=== PATIENT | female | born 1995 | race Caucasian/White ===

== ENCOUNTER 2020-11-19 16:02 | Emergency (ER) | payer MEDICAID ==
[2020-11-19] MEDS ORDERED: Sodium Chloride 0.9% 10 ML Syringe FLUSH PRN (16:42)
[2020-11-19] MEDS ORDERED: Ondansetron 4 MG/2 ML SDV IVPUSH ONE (16:42)
[2020-11-19] MEDS ORDERED: HYDROmorphone 0.5 MG/0.5 ML Syringe IVPUSH ONE (16:42)
[2020-11-19] MEDS ORDERED: Sodium Chloride 0.9% 1,000 ML IV SCH (16:45)
--- NOTE | 2020-11-19 16:46 | EDM.PDOC ---
ED HPI GENERAL MEDICAL PROBLEM - General Chief Complaint: Abdominal Pain Stated Complaint: BLOOD IN STOOL/CRAMPING Time Seen by Provider: 11/19/20 16:25 Source of Information: Reports: Patient, RN Notes Reviewed - History of Present Illness INITIAL COMMENTS - FREE TEXT/NARRATIVE: 25 yr old female has had some dark "tarry diarrhea with some blood as well today". she does have hx of Crohn's diagnosed about 5 yrs ago. No fever or chills. she has had nausea but no vomiting. She is also having a lot of upper abd cramping. No fever or chills. No chest pain or difficulty breathing. Right Lower Abdomen Pain Score (Numeric/FACES): 8 - Related Data Allergies Allergy/AdvReac Type Severity Reaction Status Date / Time cephalexin [From Keflex] Allergy Severe Cannot Verified 11/19/20 16:22 Remember Sulfa (Sulfonamide Allergy Severe Cannot Verified 11/19/20 16:22 Antibiotics) Remember Home Meds: Home Meds ARIPiprazole [Abilify] 30 mg PO DAILY 11/19/20 [History] Adalimumab [Humira(Cf) Pen] 80 mg INJECT ASDIRECTED 11/19/20 [History] Control 1 tab PO DAILY 11/19/20 [History] Past Medical History Gastrointestinal History: Reports: Other (See Below) Other Gastrointestinal History: crohns Psychiatric History: Reports: Anxiety, Bipolar Social & Family History - Tobacco Use Tobacco Use Status *Q: Current Every Day Tobacco User Years of Tobacco use: 10 Packs/Tins Daily: 1 - Caffeine Use Caffeine Use: Reports: None - Recreational Drug Use Recreational Drug Use: No ED ROS GENERAL - Review of Systems Review Of Systems: See Below Constitutional: Denies: Fever, Chills HEENT: Reports: No Symptoms Respiratory: Denies: Shortness of Breath Cardiovascular: Denies: Chest Pain GI/Abdominal: Reports: Abdominal Pain, Diarrhea, Hematochezia, Melena, Nausea. Denies: Vomiting Musculoskeletal: Denies: Back Pain Skin: Reports: No Symptoms Neurological: Reports: No Symptoms ED EXAM, GI/ABD - Physical Exam Exam: See Below General Appearance: Alert, No Apparent Distress Throat/Mouth: Normal Inspection Head: Atraumatic Neck: Supple Respiratory/Chest: No Respiratory Distress, Lungs Clear, Normal Breath Sounds Cardiovascular: Regular Rate, Rhythm GI/Abdominal Exam: Tender (upper mid exam and mid abd) Extremities: Normal Inspection Neurological: Alert, No Motor/Sensory Deficits Skin Exam: Warm, Dry, Normal Color, No Rash Course - Vital Signs Last Recorded V/S: Last Vital Signs Temp 97.5 F 11/19/20 18:23 Pulse 80 11/19/20 18:23 Resp 16 11/19/20 18:23 BP 119/83 11/19/20 18:23 Pulse Ox 100 11/19/20 18:23 - Orders/Labs/Meds Orders: Active Orders 24 hr Category Date Time Status Peripheral IV Care [RC] . DIRECTED Care 11/19/20 16:43 Active Sodium Chloride 0.9% [Normal Saline] 1,000 ml Med 11/19/20 16:45 Active IV ONETIME Sodium Chloride 0.9% [Saline Flush] Med 11/19/20 16:42 Active 10 ml FLUSH ASDIRECTED PRN Peripheral IV Insertion Adult [OM.PC] Stat Oth 11/19/20 16:42 Ordered Medication Orders Sodium Chloride (Normal Saline) 1,000 mls @ 999 mls/hr IV ONETIME [facility] Last Admin: 11/19/20 17:22 Dose: 999 mls/hr Documented by: ALEX Sodium Chloride (Sodium Chloride 0.9% 10 Ml Syringe) 10 ml FLUSH ASDIRECTED PRN PRN Reason: Keep Vein Open Last Admin: 11/19/20 17:20 Dose: 10 ml Documented by: ALEX Labs: Laboratory Tests 11/19/20 11/19/20 Range/Units 17:15 17:15 WBC 13.17 H (3.98-10.04) K/mm3 RBC 4.91 (3.98-5.22) M/mm3 Hgb 15.0 (11.2-15.7) gm/dl Hct 43.5 (34.1-44.9) % MCV 88.6 (79.4-94.8) fl MCH 30.5 (25.6-32.2) pg MCHC 34.5 (32.2-35.5) g/dl RDW Std Deviation 42.0 (36.4-46.3) fL Plt Count 399 H (182-369) K/mm3 MPV 8.9 L (9.4-12.3) fl Neut % (Auto) 61.7 (34.0-71.1) % Lymph % (Auto) 26.4 (19.3-51.7) % [place] % (Auto) 5.8 (4.7-12.5) % Eos % (Auto) 5.7 (0.7-5.8) Baso % (Auto) 0.2 (0.1-1.2) % Neut # (Auto) 8.12 H (1.56-6.13) K/mm3 Lymph # (Auto) 3.48 (1.18-3.74) K/mm3 [place] # (Auto) 0.77 H (0.24-0.36) K/mm3 Eos # (Auto) 0.75 H (0.04-0.36) K/mm3 Baso # (Auto) 0.02 (0.01-0.08) K/mm3 Manual Slide Review Sodium 141 (136-145) mEq/L Potassium 4.1 (3.5-5.1) mEq/L Chloride 104 (98-107) mEq/L Carbon Dioxide 27 (21-32) mEq/L Anion Gap 14.1 (5-15) BUN 7 (7-18) mg/dL Creatinine 0.7 (0.55-1.02) mg/dL Est Cr Clr Drug Dosing 114.01 mL/min Estimated GFR (MDRD) > 60 (>60) mL/min BUN/Creatinine Ratio 10.0 L (14-18) Glucose 84 (70-99) mg/dL Calcium 9.2 (8.5-10.1) mg/dL Total Bilirubin 0.5 (0.2-1.0) mg/dL AST 20 (15-37) U/L ALT 49 (14-59) U/L Alkaline Phosphatase 90 (46-116) U/L Total Protein 7.9 (6.4-8.2) g/dl Albumin 3.5 (3.4-5.0) g/dl Globulin 4.4 gm/dL Albumin/Globulin Ratio 0.8 L (1-2) Meds: Medications Generic Name Dose Route Start Last Admin Trade Name Freq PRN Reason Stop Dose Admin Sodium Chloride 1,000 mls @ 999 mls/hr 11/19/20 16:45 11/19/20 17:22 Normal Saline IV 999 mls/hr ONETIME SAVI Administration Sodium Chloride 10 ml 11/19/20 16:42 11/19/20 17:20 Sodium Chloride 0.9% 10 Ml Syringe FLUSH 10 ml ASDIRECTED PRN Administration Keep Vein Open Discontinued Medications Generic Name Dose Route Start Last Admin Trade Name Viraj PRN Reason Stop Dose Admin Dicyclomine HCl 20 mg 11/19/20 18:15 11/19/20 18:22 Dicyclomine 10 Mg Cap PO 11/19/20 18:16 20 mg ONETIME ONE Administration Hydromorphone HCl 0.5 mg 11/19/20 16:42 11/19/20 17:20 Hydromorphone 0.5 Mg/0.5 Ml Syringe IVPUSH 11/19/20 16:43 0.5 mg ONETIME ONE Administration Ondansetron HCl 4 mg 11/19/20 16:42 11/19/20 17:18 Ondansetron 4 Mg/2 Ml Sdv IVPUSH 11/19/20 16:43 4 mg ONETIME ONE Administration Prednisone 40 mg 11/19/20 18:15 11/19/20 18:22 Prednisone 20 Mg Tab PO 11/19/20 18:16 40 mg ONETIME ONE Administration - Re-Assessments/Exams Free Text/Narrative Re-Assessment/Exam: 11/19/20 18:18 Hgb 15. Feeling much better after IV fluid and meds. Will start on prednisone 40 mg q days for 6 days. PRN bentyl. Discharge instr. as documented. Departure - Departure Time of Disposition: 18:42 Disposition: Home, Self-Care 01 Condition: Fair Clinical Impression: Abdominal pain Qualifiers: Abdominal location: generalized Qualified Code(s): R10.84 - Generalized abdominal pain Crohn's colitis Qualifiers: Digestive disease complication type: without complication Qualified Code(s): K50.10 - Crohn's disease of large intestine without complications - Discharge Information Referrals: PCP,Not In Area [Primary Care Provider] - Forms: ED Department Discharge Additional Instructions: Clear liquids until tomorrow afternoon, than careful bland diet as tolerated. Prednisone 40 mg q AM for the next 5 days. Bentyl q 8 to 12 hr if needed for severe abd cramping. See one of our providers at our [facility] in about 4 to days. Call Sunday AM for appt. Sepsis Event Note (ED) - Evaluation Sepsis Screening Result: No Definite Risk - Focused Exam Vital Signs: Vital Signs Temp Pulse Resp BP Pulse Ox 11/19/20 18:23 97.5 F 80 16 119/83 100 11/19/20 16:18 97.4 F 91 20 117/76 99 - My Orders Last 24 Hours: My Active Orders 11/19/20 16:42 Sodium Chloride 0.9% [Saline Flush] 10 ml FLUSH ASDIRECTED PRN Peripheral IV Insertion Adult [OM.PC] Stat 11/19/20 16:43 Peripheral IV Care [RC] . DIRECTED 11/19/20 16:45 Sodium Chloride 0.9% [Normal Saline] 1,000 ml IV ONETIME - Assessment/Plan Last 24 Hours: My Active Orders 11/19/20 16:42 Sodium Chloride 0.9% [Saline Flush] 10 ml FLUSH ASDIRECTED PRN Peripheral IV Insertion Adult [OM.PC] Stat 11/19/20 16:43 Peripheral IV Care [RC] . DIRECTED 11/19/20 16:45 Sodium Chloride 0.9% [Normal Saline] 1,000 ml IV ONETIME
[2020-11-19] MEDS ORDERED: Dicyclomine 10 MG Cap PO ONE (18:15)
[2020-11-19] MEDS ORDERED: predniSONE 20 MG Tab PO ONE (18:15)
== END 2020-11-19 19:15 | disposition home or self-care (01) ==
LOC: JD.ED 16:02
DX: K50.10 Crohn's disease of large intestine without complications (principal); Z88.1 Allergy status to other antibiotic agents; Z88.2 Allergy status to sulfonamides; Z72.0 Tobacco use
CPT/HCPCS: 36415; 80053; 85025; 96374; 96375; 99284; A9270; J1170; J2405; J7030; J7512; 99283

== ENCOUNTER 2020-12-09 19:57 | Emergency (ER) | payer MEDICAID ==
[2020-12-09] MEDS ORDERED: Ondansetron 4 MG/2 ML SDV IVPUSH ONE (20:13)
[2020-12-09] MEDS ORDERED: Dicyclomine 20 MG/2 ML SDV IM ONE (21:27)
[2020-12-09] MEDS ORDERED: HYDROmorphone 0.5 MG/0.5 ML Syringe IVPUSH ONE (21:27)
[2020-12-09] MEDS ORDERED: Sodium Chloride 0.9% 1,000 ML IV ONE (21:28)
[2020-12-09] MEDS ORDERED: predniSONE 20 MG Tab PO STA (21:28)
--- NOTE | 2020-12-09 21:34 | EDM.PDOC ---
ED HPI GENERAL MEDICAL PROBLEM - General Chief Complaint: Abdominal Pain Stated Complaint: [facility] Time Seen by Provider: 12/09/20 21:10 Source of Information: Reports: Patient, Old Records (ED visit 11/19/2020) History Limitations: Reports: No Limitations - History of Present Illness INITIAL COMMENTS - FREE TEXT/NARRATIVE: Ms. Desir is a pleasant 25-year-old woman with a past medical history significant for Crohn disease diagnosed in 2016, who now presents the ED stating that she has had central abdominal pain, nausea, and vomiting since around 17:00 this evening. She describes the abdominal pain as crampy in character. No diarrhea or bloody bowel movements today. The patient states that she was previously treated with Imuran, followed by a total of 2 doses of Humira in mid to late October 2020. She has also been on prednisone in the past. Medical records indicate that the patient was seen in this ED on 11/19/2020 with a complaint at that time of bloody/tarry diarrhea, upper abdominal cramps, and nausea without emesis. A CBC was remarkable for leukocytosis of 13.17 and thrombocytosis of 399,000. A CMP was unremarkable. She was treated with oral Bentyl, IV Dilaudid, IV Zofran, and 40 mg of oral prednisone, with improvement of her symptoms. She was discharged home with a prescription for an additional 5 days of prednisone, along with oral Bentyl, and the recommendation that she follow-up at the clinic. The patient tells me at this time that she did not fill either of her prescriptions nor follow-up in the clinic, citing lack of insurance, however, she states that she got paid today, and that she will be able to fill both of the prescriptions tomorrow. Here in the ED tonight, the patient's initial BP is found to be slightly elevated at 119/101, with slight tachycardia of 101 bpm. She is afebrile, saturating 100% on room air. She is tearful, pressing onto her umbilicus. Other than her abdominal pain, nausea, and vomiting, the patient denies having a recent fever, chills, sore throat, ear pain, nasal or sinus congestion, cough, dyspnea, chest pain, palpitations, urinary symptoms, recent weight gain or weight loss, recent joint aches, headaches, or rashes. The patient does not have a PCP. Middle Abdomen Pain Score (Numeric/FACES): 8 - Related Data Allergies Allergy/AdvReac Type Severity Reaction Status Date / Time cephalexin [From Keflex] Allergy Severe Cannot Verified 12/09/20 20:05 Remember Sulfa (Sulfonamide Allergy Severe Cannot Verified 12/09/20 20:05 Antibiotics) Remember Home Meds: Home Meds ARIPiprazole [Abilify] 30 mg PO DAILY 11/19/20 [History] Adalimumab [Humira(Cf) Pen] 80 mg INJECT ASDIRECTED 11/19/20 [History] Control 1 tab PO DAILY 11/19/20 [History] Past Medical History Gastrointestinal History: Reports: Inflammatory Bowel Disease (Crohn disease dx'd 2015) Psychiatric History: Reports: Anxiety, Bipolar Endocrine/Metabolic History: Reports: Obesity/BMI 30+ - Past Surgical History HEENT Surgical History: Reports: Adenoidectomy, Oral Surgery (dental extractions), Tonsillectomy GI Surgical History: Reports: Cholecystectomy (2018), Colonoscopy (x 3 or more), EGD (x 3 or more) Social & Family History - Tobacco Use Tobacco Use Status *Q: Current Every Day Tobacco User Years of Tobacco use: 10 Packs/Tins Daily: 1 Packs/Tins Daily Comment: Down from 1.5 ppd Tobacco Use Comment: Started smoking 2010 - Caffeine Use Caffeine Use: Reports: Coffee, Soda - Alcohol Use Alcohol Use History: No - Recreational Drug Use Recreational Drug Use: No - Living Situation & Occupation Living situation: Reports: Single, with Significant Other (Fianc), with Family (1 infant) 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 ED EXAM, GI/ABD - Physical Exam Exam: See Below Exam Limited By: No Limitations General Appearance: Alert, WD/WN, Mild Distress (tearful) Eyes: Bilateral: Normal Appearance, EOMI Ears: Normal External Exam, Hearing Grossly Normal Nose: Normal Inspection Throat/Mouth: Normal Inspection, Normal Lips, Normal Voice, No Airway Compromise Head: Atraumatic, Normocephalic Neck: Normal Inspection, Full Range of Motion Respiratory/Chest: No Respiratory Distress, Lungs Clear, Normal Breath Sounds, No Accessory Muscle Use Cardiovascular: Normal Peripheral Pulses, Regular Rate, Rhythm, No Edema, No Gallop, No JVD, No Murmur, No Rub GI/Abdominal Exam: Normal Bowel Sounds, Soft, No Organomegaly, No Distention, No Abnormal Bruit, No Mass, Tender (likely, around abdomen, although pressing on the umbilical area reduces the patient's pain) Back Exam: Normal Inspection, Full Range of Motion, NT Extremities: Normal Inspection, Normal Range of Motion, No Pedal Edema, Normal Capillary Refill Neurological: Alert, Oriented, Normal Cognition, No Motor/Sensory Deficits Psychiatric: Tearful Skin Exam: Warm, Dry, Intact, Normal Color, No Rash Course - Vital Signs Last Recorded V/S: Last Vital Signs Temp 36.2 C 12/09/20 20:02 Pulse 101 H 12/09/20 20:02 Resp 18 12/09/20 20:02 BP 119/101 H 12/09/20 20:02 Pulse Ox 100 12/09/20 20:02 - Orders/Labs/Meds Orders: Active Orders 24 hr Category Date Time Status Abdomen Pelvis w Cont [CT] Stat Exams 12/09/20 21:26 Taken Labs: Laboratory Tests 12/09/20 12/09/20 12/09/20 Range/Units 20:10 20:10 20:10 WBC 12.18 H (3.98-10.04) K/mm3 RBC 4.70 (3.98-5.22) M/mm3 Hgb 14.3 (11.2-15.7) gm/dl Hct 42.4 (34.1-44.9) % MCV 90.2 (79.4-94.8) fl MCH 30.4 (25.6-32.2) pg MCHC 33.7 (32.2-35.5) g/dl RDW Std Deviation 42.9 (36.4-46.3) fL Plt Count 356 (182-369) K/mm3 MPV 8.7 L (9.4-12.3) fl Neut % (Auto) 60.0 (34.0-71.1) % Lymph % (Auto) 29.4 (19.3-51.7) % [place] % (Auto) 5.7 (4.7-12.5) % Eos % (Auto) 4.5 (0.7-5.8) Baso % (Auto) 0.2 (0.1-1.2) % Neut # (Auto) 7.30 H (1.56-6.13) K/mm3 Lymph # (Auto) 3.58 (1.18-3.74) K/mm3 [place] # (Auto) 0.70 H (0.24-0.36) K/mm3 Eos # (Auto) 0.55 H (0.04-0.36) K/mm3 Baso # (Auto) 0.03 (0.01-0.08) K/mm3 Sodium 142 (136-145) mEq/L Potassium 3.4 L (3.5-5.1) mEq/L Chloride 104 (98-107) mEq/L Carbon Dioxide 29 (21-32) mEq/L Anion Gap 12.4 (5-15) BUN 9 (7-18) mg/dL Creatinine 0.8 (0.55-1.02) mg/dL Est Cr Clr Drug Dosing 99.76 mL/min Estimated GFR (MDRD) > 60 (>60) mL/min BUN/Creatinine Ratio 11.3 L (14-18) Glucose 96 (70-99) mg/dL Calcium 8.8 (8.5-10.1) mg/dL Total Bilirubin 0.4 (0.2-1.0) mg/dL AST 23 (15-37) U/L ALT 40 (14-59) U/L Alkaline Phosphatase 81 (46-116) U/L C-Reactive Protein <0.2 (<1.0) mg/dL Total Protein 7.2 (6.4-8.2) g/dl Albumin 3.3 L (3.4-5.0) g/dl Globulin 3.9 gm/dL Albumin/Globulin Ratio 0.9 L (1-2) Lipase 123 (73-393) U/L HCG, Qual Negative (NEGATIVE) Urine Color (Yellow) Urine Appearance (Clear) Urine pH (5.0-8.0) Ur Specific [place] (1.005-1.030) Urine Protein (Negative) Urine Glucose (UA) (Negative) Urine Ketones (Negative) Urine Occult Blood (Negative) Urine Nitrite (Negative) Urine Bilirubin (Negative) Urine Urobilinogen (0.2-1.0) Ur Leukocyte Esterase (Negative) Urine RBC (0-5) /hpf Urine WBC (0-5) /hpf Ur Squamous Epith Cells (0-5) /hpf Urine Bacteria (FEW) /hpf Urine Mucus (FEW) /hpf 12/09/20 Range/Units 20:44 WBC (3.98-10.04) K/mm3 RBC (3.98-5.22) M/mm3 Hgb (11.2-15.7) gm/dl Hct (34.1-44.9) % MCV (79.4-94.8) fl MCH (25.6-32.2) pg MCHC (32.2-35.5) g/dl RDW Std Deviation (36.4-46.3) fL Plt Count (182-369) K/mm3 MPV (9.4-12.3) fl Neut % (Auto) (34.0-71.1) % Lymph % (Auto) (19.3-51.7) % [place] % (Auto) (4.7-12.5) % Eos % (Auto) (0.7-5.8) Baso % (Auto) (0.1-1.2) % Neut # (Auto) (1.56-6.13) K/mm3 Lymph # (Auto) (1.18-3.74) K/mm3 [place]eves # (Auto) (0.24-0.36) K/mm3 Eos # (Auto) (0.04-0.36) K/mm3 Baso # (Auto) (0.01-0.08) K/mm3 Sodium (136-145) mEq/L Potassium (3.5-5.1) mEq/L Chloride (98-107) mEq/L Carbon Dioxide (21-32) mEq/L Anion Gap (5-15) BUN (7-18) mg/dL Creatinine (0.55-1.02) mg/dL Est Cr Clr Drug Dosing mL/min Estimated GFR (MDRD) (>60) mL/min BUN/Creatinine Ratio (14-18) Glucose (70-99) mg/dL Calcium (8.5-10.1) mg/dL Total Bilirubin (0.2-1.0) mg/dL AST (15-37) U/L ALT (14-59) U/L Alkaline Phosphatase (46-116) U/L C-Reactive Protein (<1.0) mg/dL Total Protein (6.4-8.2) g/dl Albumin (3.4-5.0) g/dl Globulin gm/dL Albumin/Globulin Ratio (1-2) Lipase (73-393) U/L HCG, Qual (NEGATIVE) Urine Color Yellow (Yellow) Urine Appearance Clear (Clear) Urine pH 6.0 (5.0-8.0) Ur Specific [place] > or = 1.030 (1.005-1.030) Urine Protein Negative (Negative) Urine Glucose (UA) Negative (Negative) Urine Ketones Negative (Negative) Urine Occult Blood Negative (Negative) Urine Nitrite Negative (Negative) Urine Bilirubin Negative (Negative) Urine Urobilinogen 0.2 (0.2-1.0) Ur Leukocyte Esterase Negative (Negative) Urine RBC 0-5 (0-5) /hpf Urine WBC 0-5 (0-5) /hpf Ur Squamous Epith Cells 10-20 H (0-5) /hpf Urine Bacteria Few (FEW) /hpf Urine Mucus Many H (FEW) /hpf Meds: Medications Discontinued Medications Generic Name Dose Route Start Last Admin Trade Name Viraj PRN Reason Stop Dose Admin Dicyclomine HCl 20 mg 12/09/20 21:27 12/09/20 21:40 Dicyclomine 20 Mg/2 Ml Sdv IM 12/09/20 21:28 20 mg ONETIME ONE Administration Hydromorphone HCl 0.5 mg 12/09/20 21:27 12/09/20 21:43 Hydromorphone 0.5 Mg/0.5 Ml Syringe IVPUSH 12/09/20 21:28 0.5 mg ONETIME ONE Administration Sodium Chloride 1,000 mls @ 999 mls/hr 12/09/20 21:28 12/09/20 21:40 Normal Saline IV 12/09/20 22:28 999 mls/hr ONETIME ONE Administration Iopamidol 100 ml 12/09/20 22:39 Iopamidol 612 Mg/Ml 100 Ml Bottle IVPUSH 12/09/20 22:40 ONETIME ONE Ondansetron HCl 4 mg 12/09/20 20:13 12/09/20 20:28 Ondansetron 4 Mg/2 Ml Sdv IVPUSH 12/09/20 20:14 4 mg ONETIME ONE Administration Prednisone 40 mg 12/09/20 21:28 08/26/21 21:40 Prednisone 20 Mg Tab PO 12/09/20 21:29 40 mg ONETIME STA Administration - Re-Assessments/Exams Free Text/Narrative Re-Assessment/Exam: 12/09/20 21:29 As above, the patient was diagnosed in 2015 with Crohn disease, and was previously on Imuran, intermittent prednisone, and Humira for 2 doses this past October, however, due to lack of insurance, has not been on anything since. She was seen in this ED on 11/19/2020 for bloody/black diarrhea, upper abdominal cramps, and nausea. Her work-up was grossly unremarkable. Her symptoms improved following IV Dilaudid, IV Zofran, IM Bentyl, and 40 mg of oral prednisone. She was discharged home with prescriptions for both prednisone and Bentyl, but now states that she did not fill them, again citing cost. On examination today, the patient is tearful, complaining of central abdominal pain that is felt better if she presses on her umbilical area, but possibly worse with palpation elsewhere on her abdomen. She has active bowel sounds, and her abdomen is soft to palpation. A work-up, including a CBC, CMP, lipase level, CRP, serum hCG, and urinalysis were ordered from triage. Her CBC is remarkable for mild leukocytosis of 12.18, and is otherwise unremarkable. Her CMP is remarkable for slight hypokalemia 3.4, and is otherwise unremarkable. Her lipase level is within normal limits at 123. Her CRP is undetectably low. Her quantitative serum hCG is negative. Her urinalysis is unremarkable. IV Zofran was ordered at triage. I have ordered a CT of the abdomen and pelvis with oral and IV contrast. In the meantime, the patient will be given IV Dilaudid, IM Bentyl, oral prednisone, and IV fluid. 12/10/20 00:28 CT of the abdomen and pelvis with oral and IV contrast is read by [facility] as: 1. Mild edema of the distal ileum suggesting distal ileitis. No mechanical small bowel obstruction. 2. Incidental finding of a left ovarian benign-appearing 2.4 cm cyst. 3. No free fluid in the abdomen or pelvis. 4. Non inflamed appendix. 5. Fatty liver change. 6. Calcified granuloma of the right lung base. 7. Right lower quadrant nonspecific mesenteric lymph nodes subcentimeter in size. 12/10/20 00:35 Test results discussed with the patient and her fianc. She states that she feels considerably better, and looks well, as well. The patient already has prescriptions for both prednisone and Bentyl waiting for her at a pharmacy. She stated that she will be able to fill them tomorrow. I will refer her to the clinic to establish a PCP. Departure - Departure Time of Disposition: 00:36 Disposition: Home, Self-Care 01 Condition: Good Clinical Impression: Crohn's disease involving terminal ileum - Discharge Information *PRESCRIPTION DRUG MONITORING PROGRAM REVIEWED*: Not Applicable *COPY OF PRESCRIPTION DRUG MONITORING REPORT IN PATIENT MARINO: Not Applicable Instructions: Abdominal Pain, Adult, [id number] Referrals: PCP,None [Primary Care Provider] - Cindy Casas NP [Nurse Practitioner] - Forms: ED Department Discharge Additional Instructions: You were seen in the emergency room after developing central abdominal pain, nausea, and vomiting. Work-up in the ER included numerous blood tests, a urinalysis, and a CT of your abdomen with oral and IV contrast. Your blood work and urinalysis were unremarkable. The CT scan found mild inflammation of your terminal ileum, consistent with a flare of Crohn disease. You were started on oral prednisone and IM Bentyl in the ER. 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 Take them as prescribed. We recommend that you follow-up with Cindy Casas NP, or one of the other providers in the clinic, to establish a PCP. If any other problems, please do not hesitate to return to the ER. Sepsis Event Note (ED) - Evaluation Sepsis Screening Result: No Definite Risk - Focused Exam Vital Signs: Vital Signs Temp Pulse Resp BP Pulse Ox 12/09/20 20:02 36.2 C 101 H 18 119/101 H 100 - My Orders Last 24 Hours: My Active Orders 12/09/20 21:26 Abdomen Pelvis w Cont [CT] Stat - Assessment/Plan Last 24 Hours: My Active Orders 12/09/20 21:26 Abdomen Pelvis w Cont [CT] Stat
[2020-12-09] MEDS ORDERED: Diatrizoate Meglumine/Diatrizoate Sodium 37% 120 ML Bottle ONE (21:50)
[2020-12-09] MEDS ORDERED: Iopamidol 612 MG/ML 100 ML Bottle IVPUSH ONE (22:39)
[2020-12-09] MEDS ORDERED: Sodium Chloride 0.9% 10 ML Syringe ONE (22:45)
--- NOTE | 2020-12-10 09:02 | CT ---
CT abdomen and pelvis Technique: Multiple axial sections were obtained from above the dome of the diaphragm inferiorly through the pubic symphysis. Intravenous and oral contrast was utilized. Reconstructed coronal and sagittal images were obtained. Comparison: No prior CT abdomen or pelvis study is available. Findings: Calcified granuloma is noted within the right lung base measuring about 8-9 mm. Surgical clips are noted from prior cholecystectomy. Slight fatty infiltration is noted around the ligamentum teres fissure of the liver which is normal. Spleen appears normal in size. Adrenal glands show no nodule. Pancreas is within normal limits. Kidneys show symmetric contrast enhancement with no hydronephrosis or mass being seen. Abdominal aorta shows no aneurysm. No retroperitoneal adenopathy is seen. Small mesenteric lymph nodes are seen within the right lower abdomen. Largest lymph node measures about 8-9 mm. Questionable thickening within the distal ileal wall is seen and difficult to exclude minimal gastritis or Crohn's disease. Small amount of free fluid is seen within the pelvis which is most likely physiologic. Follicles are seen within both ovaries. No free fluid or inflammatory change is appreciated. Appendix is seen which is normal. Osseous structures are within normal limits for the patient's age. Impression: 1. Questionable thickening of the distal ileum raising the possibility of gastroenteritis or early Crohn's disease. 2. Small lymph nodes are noted within the right lower mesentery which are most likely incidental. 3. Other findings as noted above which are chronic. Diagnostic code #3 I agree with preliminary report from [facility], finalized on 12/10/20, 12:30 AM CDT, code 1
== END 2020-12-10 01:00 | disposition home or self-care (01) ==
LOC: JD.ED 19:57
DX: K50.00 Crohn's disease of small intestine without complications (principal); F17.210 Nicotine dependence, cigarettes, uncomplicated; E66.9 Obesity, unspecified; Z68.32 Body mass index [BMI] 32.0-32.9, adult; Z88.1 Allergy status to other antibiotic agents; Z88.2 Allergy status to sulfonamides; Z79.899 Other long term (current) drug therapy
CPT/HCPCS: 36415; 74177; 80053; 81001; 83690; 84703; 85025; 86140; 96372; 96374; 96375; 99284; J0500; J1170; J2405; J7030; J7512; Q9963; Q9967